=== PATIENT | female | born 1995 | race Caucasian/White ===

== ENCOUNTER 2019-04-07 10:42 | Emergency (ER) | payer OTHER, SELFPAY ==
[2019-04-07 10:50] VITALS: BP 115/75; PULSE 90; RESP 16; TEMP 36.8; O2SAT 100
--- NOTE | 2019-04-07 11:49 | ED.URI ---
HPI - URI/Sore Throat General Chief Complaint: Upper Respiratory Infection Stated Complaint: flu Swab Time Seen by Provider: 04/07/19 11:45 Source: patient and RN notes reviewed Mode of arrival: ambulatory Limitations: no limitations History of Present Illness HPI Narrative: Patient presents today complaining of a 2-day history of productive cough, nasal congestion, fever up to 100.3. Denies sore throat, ear pain, nausea, vomiting, diarrhea. She does report history of asthma. She is a smoker. She has been taking DayQuil, NyQuil, and ibuprofen with relief.She has been using her rescue inhaler more frequently. MD elicited complaint: cough Related Data Allergies Allergy/AdvReac Type Severity Reaction Status Date / Time No Known Allergies Allergy Verified 04/07/19 11:19 Review of Systems Review of Systems: Narrative: CONSTITUTIONAL: Denies body aches, chills, or sweats.+Fever EYES: Denies visual changes, redness, or discharge. ENT: Denies rhinorrhea, sore throat, or otalgia.+Congestion CARDIOVASCULAR: Denies chest pain, palpitations, or edema. RESPIRATORY: Denies dyspnea.+Cough GASTROINTESTINAL: Denies abdominal pain, nausea, vomiting, or diarrhea. GENITOURINARY: Denies dysuria or hematuria. SKIN: Denies rash, itching, or wounds. MUSCULOSKELETAL: Denies back pain, joint pain, or myalgia. NEUROLOGIC: Denies headache, numbness, tingling, or weakness. PSYCH: Denies depression or anxiety. [facility] Past Medical History Medical History (Updated 04/07/19 @ 11:52 by Malika Yañez, [facility], ) Asthma Social History Social History (Updated 04/07/19 @ 11:51 by Malika Yañez, [facility], ) Smoking status: Current every day smoker Exam Narrative: Exam Narrative: GENERAL: Mildly ill-appearing, well-nourished, and in no acute distress. HEAD: Normocephalic, atraumatic. EYES: EOMI. No redness or drainage. Conjunctivae normal. ENT: Mucous membranes pink and moist. Nares Congested. No rhinorrhea. TMs normal bilaterally. Throat normal. Uvula midline. NECK: Normal AROM. Supple. No lymphadenopathy. CHEST: No respiratory distress. Clear to auscultation. HEART: Regular rate and rhythm. No murmur appreciated. Normal peripheral pulses. EXTREMITIES: Normal range of motion. No edema. SKIN: Warm, dry, no rash. NEURO: No focal deficits. Alert and oriented x3. Gait steady. PSYCH: Normal affect. No signs of depression or anxiety. Course Vital Signs Vital signs: Vital Signs Temperature 98.2 F 04/07/19 10:50 Pulse Rate 90 04/07/19 10:50 Respiratory Rate 16 04/07/19 10:50 Blood Pressure 115/75 04/07/19 10:50 Pulse Oximetry 100 04/07/19 10:50 Temperature 98.2 F 04/07/19 10:50 Pulse Rate 90 04/07/19 10:50 Respiratory Rate 16 04/07/19 10:50 Blood Pressure 115/75 04/07/19 10:50 Pulse Oximetry 100 04/07/19 10:50 Reviewed MDM - URI/Sore Throat Differential Diagnosis Differential diagnosis: Likely upper respiratory infection, otitis media, sinusitis, viral infection, bronchitis, influenza and other (Strep throat) Lab Data Attestation: I reviewed the patient's lab results. Labs: Influenza A Screen Negative Reference Range: Negative Influenza B Screen Negative Reference Range: Negative Strep Screen Presumptive Negative *(Reference Range: Negative)* Critical Care Time Critical Care Time Critical Care Time: No Discharge Plan Discharge Clinical Impression: Upper respiratory infection Qualifiers: URI type: unspecified URI Qualified Code(s): J06.9 - Acute upper respiratory infection, unspecified Patient Disposition: Home, Self-Care Condition: Stable Instructions: Upper Respiratory Infection (DC) Additional Instructions: Your influenza and strep screens are negative today. Your symptoms are likely due to a viral illness, which is not treated with antibiotics. Virus symptoms can last for up to 10-14 days. Take Over-th
== END 2019-04-07 11:55 | disposition home or self-care (01) ==
PROVIDERS: Emergency Provider Nurse Practitioner; PCP Physician Assistant
DX: J06.9 Acute upper respiratory infection, unspecified (principal); J45.909 Unspecified asthma, uncomplicated; F17.200 Nicotine dependence, unspecified, uncomplicated
CPT/HCPCS: 87081; 87804; 87880; 99213; G0463

== ENCOUNTER 2022-10-03 12:31 | Emergency (ER) | payer OTHER, SELFPAY ==
[2022-10-03 12:42] VITALS: BP 122/80; PULSE 81; RESP 16; TEMP 36.5; O2SAT 100
[2022-10-03 12:43] VITALS: BP 122/80; PULSE 81; RESP 16; TEMP 36.5; O2SAT 100
[2022-10-03] MEDS: KETOROLAC (*BKC) 60 MG/2 ML VIAL IM (12:56)
--- NOTE | 2022-10-03 13:15 | ED.GENADULT ---
HPI - General Adult General Chief complaint: Headache Stated complaint: Headache Source: patient Mode of arrival: ambulatory Limitations: no limitations History of Present Illness HPI narrative: Patient presents for evaluation of a headache. She indicates she has a history of migraines and her current symptoms are consistent with previous episodes of migraines. Symptoms started one week ago. She has tried several OTC medications without relief. She states historically she has seen her PCP who will treat her in office or prescribe medications. Pain is in the occipital region and throbbing in nature. She rates her pain 8/10 in severity. Pain is in the occipital region and throbbing. She has photophobia and phonophobia. Related Data Home Medications Medication Instructions Recorded Confirmed buspirone 5 mg tablet mg 10/03/22 levothyroxine 25 mcg tablet mcg 10/03/22 (Unithroid) Allergies Allergy/AdvReac Type Severity Reaction Status Date / Time No Known Allergies Allergy Verified 04/07/19 11:19 Review of Systems Review of Systems: CONSTITUTIONAL: Denies fever, chills, or sweats. EYES: Reports photophobia. denies other visual symptoms, visual changes, redness, or discharge. ENT: Reports photophobia. Denies rhinorrhea, congestion, sore throat, or otalgia. CARDIOVASCULAR: Denies chest pain, palpitations, or edema. RESPIRATORY: Denies cough or dyspnea. GASTROINTESTINAL: Denies abdominal pain, nausea, vomiting, or diarrhea. GENITOURINARY: Denies dysuria or hematuria. SKIN: Denies rash or itching. MUSCULOSKELETAL: Denies back pain, joint pain, or myalgia. NEUROLOGIC: Reports headache. Denies numbness, dizziness, or weakness. PSYCHIATRIC: Denies anxiety or depression. [facility] Past Medical History Medical History (Updated 10/03/22 @ 13:40 by MARJAN Arnett, TROY) Asthma Migraine Surgical History Surgical History (Updated 10/03/22 @ 13:28 by MARJAN Arnett, TROY) History of hand surgery Family History Family History Mother Family history non-contributory Social History Social History Smoking packs per day: 0.5 Smoking cigarettes per day: 10.0 Smoking status: Current every day smoker Living arrangements: with family Gender identity (if verbalized by the patient): Female Spiritual care concerns: No Exam Narrative: GENERAL: Well-appearing, well-nourished, and in no acute distress. HEAD: Normocephalic, atraumatic. EYES: PERRLA and EOMI. ENT: Nares clear, no rhinorrhea or epistaxis. Mucous membranes moist. Oropharynx without tonsillar hypertrophy exudate or other lesions. Bilateral TMs pearly anderson nonbulging NECK: Supple. No adenopathy or masses. No carotid bruits or JVD CHEST: Clear to auscultation. No respiratory distress. No wheezes rales or rhonchi HEART: Regular rate and rhythm. No murmur heard. Normal peripheral pulses. ABDOMEN: Soft, nontender, nondistended, normal active bowel sounds. EXTREMITIES: Normal range of motion. No edema. SKIN: Warm, dry, no rash. NEURO: No focal deficits. Alert and oriented x3. PSYCH: Normal mood and affect. Course Course Emergency Course: This is a 27-year-old female who presented for evaluation of migraine. She was given Toradol with improvement in her symptoms thereafter. Will DC with Fioricet. Follow-up with primary provider. Go to the ER for worsening symptoms. Patient in agreement with plan of care Level of Care: Express Care Visit Vital Signs Vital signs: Vital Signs Temperature 36.5 C 10/03/22 12:42 Pulse Rate 81 10/03/22 12:42 Respiratory Rate 16 10/03/22 12:42 Blood Pressure 122/80 10/03/22 12:42 Pulse Oximetry 100 10/03/22 12:42 Oxygen Delivery Room Air 10/03/22 12:42 Temperature 36.5 C 10/03/22 12:43 Pulse Rate 81 10/03/22 12:43 Respiratory Rate 16
== END 2022-10-03 13:45 | disposition home or self-care (01) ==
PROVIDERS: Emergency Provider Nurse Practitioner; PCP Physician Assistant
DX: G43.809 Other migraine, not intractable, without status migrainosus (principal); F17.210 Nicotine dependence, cigarettes, uncomplicated; J45.909 Unspecified asthma, uncomplicated
CPT/HCPCS: 96372; 99213; G0463; J1885